=== PATIENT | female | born 1945 | race Caucasian/White ===

== ENCOUNTER 2017-10-24 13:18 | Inpatient (IN) | payer MEDICARE, OTHER ==
[2017-10-24] MEDS ORDERED: Acetaminophen 325 MG TAB PO PRN (14:07)
[2017-10-24] MEDS ORDERED: Sodium Chloride 0.9% 1,000 ML IV SCH (14:15)
[2017-10-24] MEDS ORDERED: Sodium Chloride 0.9% 500 ML IV SCH (14:15)
[2017-10-24] MEDS: Sodium Chloride 0.9% 1,000 ML IV SCH ×2 (15:00→18:07)
[2017-10-24 15:44] LABS: Band 13 % (5-11); Hematocrit 39.9 % (36.0-47.0); Mean Platelet Volume 7.7 fL (7.4-10.4); Neutrophil 69 % (42-75); White Blood Cell (WBC) Count 20.4 thou/uL (4.8-10.8)
[2017-10-24 15:46] LABS: ALT (SGPT) 18 U/L (8-55); AST (SGOT) 17 U/L (5-34); Alkaline Phosphatase 81 U/L (40-150); Anion Gap 11 mmol/L (10-20); BUN (Urea Nitrogen) 26 mg/dL (9.8-20.1); Bilirubin, Total 0.6 mg/dL (0.2-1.2); Calc. Creatinine Clearance 0 mL/min (70-130); Calcium 10.4 mg/dL (7.8-10.44); Carbon Dioxide 29 mmol/L (23-31); Chloride 102 mmol/L (98-107); Estimated GFR-MDRD 60; Globulin 3.1 g/dL (2.4-3.5); Protein, Total 6.9 g/dL (6.0-8.3)
[2017-10-24] MEDS: Dicyclomine 10 MG CAP PO PRN (17:28)
--- NOTE | 2017-10-24 17:39 | RAD ---
TWO VIEW ABDOMEN: 10/24/17 HISTORY: Gastroenteritis. Supine and upright views obtained. Bowel gas pattern is unremarkable. There is scattered stool and gas throughout the colon. Some scatte red small bowel gas appears unremarkable. No small bowel dilatation. No free air. Postcholecystectomy clips. IMPRESSION: Unremarkable bowel gas pattern. POS: [facility]
[2017-10-24] MEDS ORDERED: diphenhydrAMINE 25 MG CAP PO PRN (18:43)
[2017-10-24] MEDS: Ondansetron HCl/PF 4 MG/2 ML Vial IVP PRN (19:41)
[2017-10-24] MEDS: Carvedilol 6.25 MG TAB PO SCH (19:46)
[2017-10-24] MEDS: Famotidine 20 MG TAB PO SCH (19:47)
--- NOTE | 2017-10-24 23:12 | CT ---
NONCONTRAST ENHANCED CT IMAGES ABDOMEN AND PELVIS: 10/24/17 IV contrast is not given. Oral contrast was ingested. HISTORY: Abdominal pain and diarrhea. The lung bases are unremarkable. The liver has an area of hypodensity which is slightly larger than on the previous comparison CT in 2012, likely representing hepatic cyst. Splenic calcification compatible with granuloma seen. A hi atal hernia is seen. The adrenal glands are unremarkable. 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 No dilated loops of small bowel seen. There is marked abnormal thickening of the distal transverse colon, splenic flexure, descending colon compatible with colitis. Some moderate sigmoid colonic mucosal thickening also seen. Sigmoid colonic diverticulosis is also present. IMPRESSION: Abnormal thickening of portions of the distal colon including the distal transverse colon and splenic flexure and descending colon. This may represent changes of colitis. Correlate with direct visualiza tion. POS: [facility]
--- NOTE | 2017-10-25 00:24 | CON ---
DATE OF CONSULTATION: 10/24/2017 REASON FOR CONSULTATION: Hematochezia, diarrhea. CONSULTING PHYSICIAN: Juan Rod MD HISTORY OF PRESENT ILLNESS: Patient is a 72-year-old female with past medical history of gastroesophageal reflux disease, hypertension, hypothyroidism, diverticulosis, and ischemic colitis presenting with acute onset of nausea, vomiting, and bloody diarrhea. She states that she was in her usual state of health until approximately yesterday at noon when she began to experience left lower quadrant cramping abdominal pain and diaphoresis that was shortly followed by an episode of nonbloody emesis and bright red blood per rectum. Her abdominal pain was characterized as cramping abdominal pain, intermittent, and at the time of this examination was approximately 3-4/10 in severity. She states that over the last 24-48 hours, she has taken multiple medications for her diarrhea including azithromycin, Bentyl, and Zofran. Of note, she had an episode of ischemic colitis in 2014 after taking clonidine for antihypertensive purposes with the presenting symptoms very similar to that particular incident. She denies any recent change in her medications, travel outside [place], or consumption of water from an untreated water source. Last colonoscopy was performed in 08/2015, which showed changes consistent with sigmoid ischemic colitis. OUTPATIENT MEDICATIONS: Gaviscon Extra Relief Formula, Benefiber drink mix, lisinopril 40 mg daily, Synthroid 88 mcg daily, clonidine 0.1 mg as needed, carvedilol 25 mg twice daily, tramadol/acetaminophen as needed, montelukast sodium 10 mg as needed, hydrochlorothiazide 25 mg daily, Dexilant 60 mg daily. INPATIENT MEDICATIONS: Reviewed. MEDICAL HISTORY: As above per HPI. FAMILY HISTORY: Denies GI malignancies. SOCIAL HISTORY: Denies tobacco or illicit drug use. PHYSICAL EXAMINATION: VITAL SIGNS: Temperature 99.8, pulse 94, blood pressure 179/81, respiratory rate 16, satting 96% on room air. GENERAL: Patient is in no acute distress, alert and oriented x4. CARDIOVASCULAR: Regular rate and rhythm with no discernible murmurs, gallops, or rubs. RESPIRATORY: Clear to auscultation bilaterally with no wheezes or rales. ABDOMEN: Normoactive bowel sounds. [id number] tenderness to palpation in the left lower quadrant and left upper quadrant. No ecchymoses or overlying bruising noted. No abnormal pulsations or peristalsis. EXTREMITIES: No cyanosis, clubbing or edema noted in either upper or lower extremities. NEUROLOGIC: Normal attention span ability to concentrate. Appropriate fund of knowledge. MUSCULOSKELETAL: Normal gait and station. LABORATORY DATA: CBC with white blood cell count of 20.4, hemoglobin 13.1, hematocrit 39.9, platelet count 303, neutrophilic bands 13%. Chemistry with sodium of 138, potassium 4.4, chloride 102, carbon dioxide 29, BUN 26, creatinine 0.93, glucose 110, calcium 10.4. AST 17, ALT 18, alkaline phosphatase 81, total bilirubin 0.6, albumin 3.8. IMAGING: No current GI imaging available for review. ASSESSMENT AND PLAN: Patient is a 72-year-old female with past medical history of gastroesophageal reflux disease, hypertension, hypothyroidism, diverticulosis , and ischemic colitis presenting with left lower quadrant abdominal pain and hematochezia. Infectious colitis Patient is presenting with approximately 24-48 hours of left lower quadrant abdominal pain associated with increased diaphoresis, nausea, and vomiting, and bloody diarrhea characterized by moderate amounts of bright red blood per rectum. Rectal exam performed while in the clinic was positive for bright red blood on the glove. No stated history of sick contacts, changes in recent medications, or consumption of either foodstuffs or water from untreated or uncooked sources. Given the location of her pain and the appearance of bright red blood per rectum, differential could include diverticular bleeding (less likely), infectious etiology, ischemic colitis, diverticulitis, stercoral ulcerations (less likely), or malignancy (much less likely). PLAN: 1. We will obtain CT abdomen and pelvis with special attention to the left lower quadrant for evaluation of possible ischemic versus diverticulitis changes. 2. Continue IV fluid supplementation for dehydration. 3. We will obtain infectious stool studies for possible infectious etiology of hematochezia. 4. Continue to trend H&H and transfuse as necessary. 5. If the patient does not respond to the above conservative measures over the next 24-48 hours, would consider a colonoscopic evaluation. [facility]
[2017-10-25] MEDS: Sodium Chloride 0.9% 1,000 ML IV SCH ×2 (02:19→16:02)
[2017-10-25] MEDS: Levothyroxine Sodium 100 MCG TAB PO SCH (06:00)
[2017-10-25] MEDS: Ondansetron HCl/PF 4 MG/2 ML Vial IVP PRN (06:37)
[2017-10-25] MEDS: Dicyclomine 10 MG CAP PO PRN ×2 (06:40→14:31)
[2017-10-25] MEDS: Carvedilol 6.25 MG TAB PO SCH ×2 (08:54→20:43)
[2017-10-25] MEDS: Lisinopril 20 MG TAB PO SCH (08:54)
[2017-10-25 14:07] VITALS: BMI 28.1
--- NOTE | 2017-10-25 15:03 | CON ---
DATE OF CONSULTATION: 10/25/2017 REASON FOR CONSULTATION: Atrial fibrillation. PRIMARY PROVIDER: Dr. Dominick Hernandez. HISTORY OF PRESENT ILLNESS: Ms. Monroy is a very pleasant 72-year-old woman who has been seen by Dr. Kvng Hernandez in the past. She recently presented with hematochezia and persistent diarrhea over the last several days. She has been seen and evaluated by GI. She also recently developed atrial fibrillation. This is a new finding. She is mildly symptomatic. Heart rate in the 90s-100s. No chest pain or pressure noted. She underwent coronary angiography re cently by Dr. Dominick Hernandez. She did have mild to moderate coronary disease with most significant le dameon estimated at ostial 70% OM. PAST MEDICAL HISTORY: Hypertension. CURRENT MEDICATIONS: Coreg, lisinopril, amlodipine, hydrochlorothiazide. ALLERGIES: STATINS. SOCIAL HISTORY: No current tobacco or alcohol use. REVIEW OF SYSTEMS: Ten-point review of systems is reviewed and as above, otherwise negative. PHYSICAL EXAMINATION: GENERAL: Patient is a pleasant female who is in no acute distress. The patient appears her stated a ge. VITAL SIGNS: Blood pressure 178/83, pulse 79, temperature 99.4. NEUROLOGIC: The patient is alert and oriented times 3 with no focal neurologic deficits. HEENT: Sclerae without icterus. Mouth has moist mucous membranes with normal pallor. NECK: No JVD. Carotid upstroke brisk. No bruits bilaterally. LUNGS: Clear to auscultation with unlabored respirations. BACK: No scoliosis or kyphosis. CARDIAC: Irregular, irregular. ABDOMEN: Soft, nontender, nondistended. No peritoneal signs present. No hepatosplenomegaly. No ab normal striae. EXTREMITIES: 2+ femoral and 2+ dorsalis pedis pulses. No cyanosis, clubbing, or edema. SKIN: No gross abnormalities. PERTINENT LABORATORY DATA: White blood cell count 20,000, BUN 26, creatinine 0.93. IMPRESSION: New onset atrial fibrillation. RECOMMENDATIONS: At this point, I would continue rate control. She is on Coreg 12.5 mg 1 p.o. b.i.d . I discussed the case with Dr. Tavarez about anticoagulation therapy. At this point, given recent hematochezia, we will defer for now. Echo with Doppler has been ordered. Further recommendations halle Hernandez in a.m.
--- NOTE | 2017-10-25 17:31 | PRG ---
DATE OF SERVICE: 10/25/2017 REASON FOR INITIAL CONSULTATION: Hematochezia, diarrhea. SUBJECTIVE: The patient is feeling better this morning with lessened diarrhea overnight and with less hematochezia when compared to previous that ultimately stopped later this afternoon. However, she did have a larger bloody bowel movement this morning but has not since been repeated. She continues to have mild left-sided abdominal pain that is unchanged in location and/or frequency. Of note, she did have an episode of palpitations with prompted a 12-lead EKG, which showed atrial fibrillation with RVR. Cardiology service was consulted for evaluation and recommendations and the patient was transferred to telemetry as a result. Currently denies nausea, vomiting, fever, chills, dysphagia, hematemesis, or melena. INPATIENT MEDICATIONS: Reviewed. PHYSICAL EXAMINATION: VITAL SIGNS: Temperature 98.3, pulse 115, blood pressure 179/81, respiratory rate 20, satting 96% on 2 liters nasal cannula. GENERAL: No acute distress. Alert and oriented x4. NECK: Supple, no JVD noted. CARDIOVASCULAR: Irregularly irregular heart rhythm. No discernible murmurs, gallops or rubs. RESPIRATORY: Clear to auscultation bilaterally with no wheezes or rales. ABDOMEN: Normoactive bowel sounds, soft, nondistended. Tenderness to palpation in the left upper quadrant, left mid and left lower quadrant. EXTREMITIES: No cyanosis, clubbing or edema. LABORATORY DATA: No current studies available for review. IMAGING: CT abdomen and pelvis obtained on 10/24/2017 showing marked abnormal thickening of the distal transverse colon, splenic flexure, descending colon compatible with colitis. Some moderate sigmoid colonic mucosal thickening also seen, sigmoid colonic diverticulosis is also present. ASSESSMENT: The patient is a 72-year-old female with a past medical history of gastroesophageal reflux disease, hypertension, hypothyroidism, diverticulosis, and ischemic colitis presenting with left-sided abdominal pain, hematochezia, and imaging consistent with ischemic colitis. Ischemic colitis The patient presenting with acute onset of left lower quadrant abdominal pain associated with increased diaphoresis, nausea, and vomiting, and bloody diarrhea characterized by moderate amounts of bright red blood per rectum. With institution of IV fluid administration her diarrhea and bright red blood per rectum has become minimal, with improvement of her abdominal pain as well. Given the imaging and the location of her pain, the differential diagnosis could include ischemic colitis (most likely), infectious etiology (less likely given negative studies thus far), diverticulitis (less likely per imaging), diverticular disease, or malignancy (much less likely). PLAN: 1. Continue IV supplementation for dehydration at 100mL/hr. 2. Continue to trend H&H and transfuse as necessary. 3. Concur with Cardiology in evaluation and treatment of the new onset atrial fibrillation with the goal to maintain a roughly normotensive blood pressure to prevent any further ischemia to watershed area in the colon as seen on the imaging. 4. Colonoscopic evaluation is not indicated at this time given the high likelihood of ischemic colitis in the watershed area. 5. If patient continues to improve and if cleared by Cardiology, can be discharged from GI standpoint. ALAINA
[2017-10-25 17:34] LABS: #Eosinphils 0.1 thou/uL (0.0-0.7); #Lymphocytes 2.2 thou/uL (1.20-3.40); #Monocytes 1.4 thou/uL (0.11-0.59); #Neutrophils 11.3 thou/uL (1.40-6.50); %Basophils 0.1 % (0.0-1.0); %Eosinophils 0.4 % (0.0-10.0); %Lymphocytes 14.5 % (21.0-51.0); %Monocytes 9.2 % (0.0-10.0); Hematocrit 37.3 % (36.0-47.0); Mean Platelet Volume 7.7 fL (7.4-10.4); Red Blood Cell (RBC) Count 4.13 mill/uL (4.20-5.40); White Blood Cell (WBC) Count 14.9 thou/uL (4.8-10.8)
[2017-10-25 17:56] LABS: ALT (SGPT) 15 U/L (8-55); AST (SGOT) 20 U/L (5-34); Alkaline Phosphatase 90 U/L (40-150); Anion Gap 11 mmol/L (10-20); BUN (Urea Nitrogen) 15 mg/dL (9.8-20.1); Bilirubin, Total 0.5 mg/dL (0.2-1.2); Calc. Creatinine Clearance 73 mL/min (70-130); Calcium 9.7 mg/dL (7.8-10.44); Carbon Dioxide 26 mmol/L (23-31); Chloride 107 mmol/L (98-107); Estimated GFR-MDRD 72; Globulin 3.1 g/dL (2.4-3.5); Protein, Total 6.7 g/dL (6.0-8.3)
[2017-10-25] MEDS: Famotidine 20 MG TAB PO SCH (20:43)
[2017-10-26] MEDS: Sodium Chloride 0.9% 1,000 ML IV SCH (02:22)
[2017-10-26 05:30] LABS: ALT (SGPT) 14 U/L (8-55); AST (SGOT) 16 U/L (5-34); Alkaline Phosphatase 63 U/L (40-150); Anion Gap 9 mmol/L (10-20); BUN (Urea Nitrogen) 13 mg/dL (9.8-20.1); Bilirubin, Total 0.4 mg/dL (0.2-1.2); Calc. Creatinine Clearance 0 mL/min (70-130); Calcium 8.7 mg/dL (7.8-10.44); Carbon Dioxide 24 mmol/L (23-31); Chloride 111 mmol/L (98-107); Estimated GFR-MDRD 79; Globulin 2.4 g/dL (2.4-3.5); Protein, Total 5.5 g/dL (6.0-8.3)
[2017-10-26 05:31] LABS: #Basophils 0.1 thou/uL (0.0-0.2); #Eosinphils 0.2 thou/uL (0.0-0.7); #Lymphocytes 2.4 thou/uL (1.20-3.40); #Monocytes 1.1 thou/uL (0.11-0.59); #Neutrophils 7.7 thou/uL (1.40-6.50); %Basophils 0.4 % (0.0-1.0); %Eosinophils 1.4 % (0.0-10.0); %Lymphocytes 21.2 % (21.0-51.0); %Monocytes 9.3 % (0.0-10.0); Hematocrit 32.7 % (36.0-47.0); Mean Platelet Volume 7.8 fL (7.4-10.4); White Blood Cell (WBC) Count 11.4 thou/uL (4.8-10.8)
[2017-10-26] MEDS: Levothyroxine Sodium 100 MCG TAB PO SCH (06:00)
[2017-10-26] MEDS: Carvedilol 6.25 MG TAB PO SCH ×2 (09:49→16:52)
[2017-10-26] MEDS: Lisinopril 20 MG TAB PO SCH (09:50)
--- NOTE | 2017-10-26 10:29 | PRG ---
DATE OF SERVICE: 10/26/2017. REASON FOR INITIAL CONSULTATION: Hematochezia, diarrhea. SUBJECTIVE: The patient is feeling much better this morning with no diarrhea or hematochezia overnight. She does continue to have some mild tenderness in the left upper quadrant, but it is also improved from previous. Yesterday, she did have an episode of atrial fibrillation with RVR with Cardiology consultation obtained at that time. Per recommendations, they have recommended rate control for this atrial fibrillation, but no anticoagulation at this time given her recent gastrointestinal bleed. Currently, denies nausea, vomiting, fevers, chills, dysphagia, hematemesis, hematochezia, or melena. INPATIENT MEDICATIONS: Reviewed. LABORATORY DATA: CBC with white blood cell count 11.4, hemoglobin 10.9, hematocrit 32.7, platelets 249. Chemistry with sodium of 141, potassium 3.3, chloride 111, carbon dioxide 24, BUN 13, creatinine 0.73, glucose 91. IMAGING: CT abdomen and pelvis obtained on 10/24/2017 showing marked abnormal thickening of the distal transverse colon, splenic flexure, and descending colon compatible with colitis. Some moderate sigmoid colonic mucosal thickening also seen. Sigmoid colonic diverticulosis also present. ASSESSMENT AND PLAN: The patient is a 72-year-old female with past medical history of GERD, hypertension, hypothyroidism, diverticulosis, and ischemic colitis presenting with left-sided abdominal pain, hematochezia, and imaging consistent with an ischemic colitis. Ischemic colitis The patient presenting with acute onset of left lower quadrant abdominal pain associated with increased diaphoresis, nausea, vomiting, and hematochezia characterized as moderate amounts of bright red blood per rectum. She has responded well to IV fluid administration and more conservative measures with complete resolution of her diarrhea and hematochezia over the last 12-24 hours. Given the imaging and location of her pain, ischemic colitis is the most likely etiology. PLAN: 1. Discontinue IV fluid with patient to maintain hydration via oral route. 2. Colonic evaluation is not indicated at this time given the high likelihood of ischemic colitis. 3. Defer to Cardiology for management of new onset atrial fibrillation with RVR. We would continue to limit anticoagulation for now, but will most likely need chronic anticoagulation in the future given the new onset of this cardiac arrhythmia. We will defer to Cardiology when that is deemed appropriate. 4. From a GI standpoint, the patient could be discharged to home with follow up in the GI clinic within 3-4 weeks if she is cleared by Cardiology for discharge. [facility]INA
[2017-10-26 16:10] VITALS: TEMP 99.1
[2017-10-26] MEDS ORDERED: Dronedarone HCl 400 MG TAB PO SCH (17:00)
--- NOTE | 2017-10-26 19:10 | PRG ---
DATE OF SERVICE: 10/26/2017 SUBJECTIVE: Ms. Monroy is doing well today. She converted to sinus rhythm yesterday. She is feeling well. PHYSICAL EXAMINATION: VITAL SIGNS: Her blood pressure is 157/76, pulse 64 and regular. LUNGS: Clear. CARDIAC: Normal S1 and S2. ASSESSMENT: 1. Episodes of hematochezia which was thought to be due to ischemic colitis. 2. Paroxysmal atrial fibrillation. This is the first time she has had these symptoms. 3. Coronary artery disease. PLAN: 1. We will put her on Multaq 200 mg twice a day, start tomorrow. Heart rate was 120-110 yesterday i n atrial fibrillation. We will try to get by with low dose Multaq. 2. Need to wait for anticoagulation for about 3 weeks. 3. She will see us in the office in 3 weeks. 4. Cannot be anticoagulated at this time. We will try to do that in 3 weeks.
[2017-10-26 19:42] VITALS: BP 152/68
[2017-10-27] MEDS ORDERED: Dronedarone HCl 400 MG TAB PO SCH ×2 (09:00→17:00)
--- NOTE | 2017-11-11 13:24 | EKG ---
Test Reason : Blood Pressure : / mmHG Vent. Rate : 114 BPM Atrial Rate : 096 BPM P-R Int : 000 ms QRS Dur : 084 ms QT Int : 336 ms P-R-T Axes : 000 019 028 degrees QTc Int : 463 ms Atrial fibrillation with rapid ventricular response RSR' or QR pattern in V1 suggests right ventricular conduction delay Nonspecific ST abnormality , probably digitalis effect Abnormal ECG Confirmed by ROBERTO MORRELL, AUDI ([id number]) on 11/11/2017 1:24:12 PM Referred By: RUBIO Confirmed By:AUDI MEJIA MD
== END 2017-10-26 19:43 | disposition home or self-care (01) | DRG 395 ==
LOC: ONC 13:18 → 2NO 10-25 14:56
PROVIDERS: ADMIT Internal Medicine; ATTEND Internal Medicine
DX: K55.9 Vascular disorder of intestine, unspecified (principal); I48.91 Unspecified atrial fibrillation; E86.0 Dehydration; I10 Essential (primary) hypertension; E03.9 Hypothyroidism, unspecified; I25.10 Atherosclerotic heart disease of native coronary artery without angina pectoris; K21.9 Gastro-esophageal reflux disease without esophagitis
CPT/HCPCS: 36415; 74020; 74176; 80053; 85025; 87045; 87046; 87324; 87449; 87899; 93005; 93010; J2405

== ENCOUNTER 2017-12-20 08:22 | Outpatient (CLI) | payer MEDICARE, OTHER ==
--- NOTE | 2017-12-20 11:25 | CT ---
CT ANGIOGRAM ABDOMEN AND PELVIS WITH IV CONTRAST AND 3D RECONSTRUCTIONS: Date: 12-20-17 History: Bloody diarrhea. Abdominal pain with nausea and vomiting. Patient states left lower quadrant pain for 2-3 months. History of cholecystectomy. Technique: Contiguous axial CT images are obtained through the abdomen and pelvis after the administr ation of intravenous contrast. 3D reconstruction images are provided. Delayed portal venous phase of imaging was also obtained through the abdomen and pelvis. Comparison: 03-22-13 FINDINGS: Again noted are partially imaged bilateral breast prostheses. There is atelectasis present in each lung base. Small hiatal hernia is again present. Post cholecystectomy changes are noted. Delayed portal venous phase of imaging demonstrates patency o f the portal and splenic veins as well as the superior mesenteric vein. There does appear to be atrop hy of the lateral segment of the left hepatic lobe when compared to the prior study of 2012 of uncert ain etiology. As a result, the left portal vein is not well visualized. Kidneys demonstrate a lobulated appearance bilaterally, and a few subcentimeter too small to characte rize hypodense lesions are seen in the left kidney. No enhancing renal lesion is appreciated. There i s a lobulated low density structure seen within the right hepatic lobe, also seen on prior exam, prev iously measuring 10 mm and now measures 14 mm. This does demonstrate fluid attenuation. This may repr esent a small cyst with internal septation to the closely adjacent cyst. Calcified granuloma is also seen within the right hepatic lobe with calcified granuloma again scattered in the spleen. The pancreas, bilateral adrenal glands, and partially distended urinary bladder as well as uterus and adnexal structures demonstrate a normal CT appearance. There is colonic diverticulosis. There is mild atherosclerotic irregularity and narrowing involving the proximal single left renal art renetta. There is a single patent right renal artery. The celiac and superior mesenteric and inferior mes enteric arteries are patent. There is mild atherosclerotic plaque in the abdominal aorta, but the abdominal aorta is normal in mal[place] iber with evidence of an aortic dissection. The bilateral iliac and common femoral arteries are paten t. Degenerative changes are seen in the spine. There is a grade I anterolisthesis of L4 on L5 likely con tributable to facet degenerative changes at this level. IMPRESSION: 1. The celiac, superior mesenteric, and inferior mesenteric arteries are patent. 2. Single left renal artery demonstrating atherosclerotic plaque proximally resulting in mild to mode rate focal area of narrowing. Single patent right renal artery is present. 3. The main portal vein as well as right portal vein are patent. However, the left portal vein is kelly y small in size, and there has been interval atrophy of the lateral segment of the left hepatic lobe when compared to study on 03-22-13 of uncertain etiology. This may be post-surgical in origin. There i s evidence of cholecystectomy changes. 4. Small hiatal hernia. 5. Colonic diverticulosis. 6. Small lobulated complex cyst versus closes adjacent cyst in the right hepatic lobe. 7. Degenerative changes in the spine with grade I anterolisthesis of L4 on L5. POS: [facility]
[2017-12-20] MEDS ORDERED: Iopamidol 370 76% 100 ML VIAL ONE (13:09)
== END 2017-12-20 08:23 | disposition home or self-care (01) ==
LOC: CT 08:22
PROVIDERS: ATTEND Internal Medicine Gastroenterology
DX: R19.7 Diarrhea, unspecified (principal); R10.32 Left lower quadrant pain; I70.1 Atherosclerosis of renal artery; K44.9 Diaphragmatic hernia without obstruction or gangrene; K57.30 Diverticulosis of large intestine without perforation or abscess without bleeding; M47.816 Spondylosis without myelopathy or radiculopathy, lumbar region; M43.16 Spondylolisthesis, lumbar region
CPT/HCPCS: 74174

== ENCOUNTER 2019-03-06 10:53 | Outpatient (CLI) | payer MEDICARE, OTHER ==
--- NOTE | 2019-03-06 11:51 | RAD ---
RIGHT HIP TWO VIEWS: History: Osteoarthritis with pain. FINDINGS: There are mild degenerative changes. Femoral head contour is normal. Minimal spurring is seen from th e femoral head and acetabulum. No fracture or acute abnormality. IMPRESSION: Mild degenerative change. POS: [facility]
== END 2019-03-06 10:54 | disposition home or self-care (01) ==
LOC: RAD 10:53
PROVIDERS: ATTEND Anesthesiology Pain Medicine
DX: M16.11 Unilateral primary osteoarthritis, right hip (principal)

== ENCOUNTER 2019-03-20 09:02 | Outpatient (CLI) | payer MEDICARE, OTHER ==
--- NOTE | 2019-03-20 09:44 | RAD ---
THREE VIEWS LUMBAR SPINE: Date: 03-20-19 History: Back pain, right lower extremity radiculopathy. FINDINGS: Lateral neutral, flexion and extension imaging is provided. There is multilevel lower lumbar spine facet hypertrophic change, most prominent at L4-5 and L5-S1. There is disc space narrowing and degenerative endplate change throughout the lumbar spine, most prom inent at L1-2, L2-3, and L3-4. Anterior osteophyte formation noted at L1-2 and L3-4. Anterolisthesis at L4-5 noted, measuring 7-8 mm on neutral imaging, 9 mm on extension imaging, and 1. 2 cm on flexion imaging. There is minimal retrolisthesis at L1-2 and L2-3 measuring in the 3 mm range , stable on neutral, flexion, and extension views. Clips in the upper abdomen suggest prior cholecyst ectomy. IMPRESSION: Multilevel degenerative change within the lumbar spine. Significant anterolisthesis at L4-5, measurin g up to 1.2 cm upon flexion. POS: [facility]
--- NOTE | 2019-03-20 10:16 | MRI ---
MRI lumbar spine noncontrast: HISTORY: Lumbar radiculopathy, acute. Low back pain radiating down the right leg, x3 weeks. L2 steroid injecti on 2 weeks ago. COMPARISON: None FINDINGS: Appropriate T1 marrow signal intensity of the lumbar vertebra. Lumbar spine vertebral body height is maintained. No fracture. No significant STIR hyperintensity to suggest vertebral body edema or ligamentous injury. 3. 0.1 mm of retrolisthesis of L1 upon L2, 2.3 mm of retrolisthesis of L2 upon L3, 3.1 mm retrolisthe sis of L3 upon L4, 6.3 mm of anterolisthesis of L4 upon L5. Appropriate signal intensity in the visualized solid organs. 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 Generalized disc bulge, ligament flavum thic kening result in mild central canal stenosis. Moderate bilateral neural foraminal narrowing. L2-L3:Desiccation with severe loss of disc space height. Broad-based disc bulge with a left subarticu lar disc protrusion with associated inferior disc extrusion. Disc material abuts and obscures the traversing left L3 root. Overall mild central canal stenosis. Moderate right and moderate left forami nal narrowing. L3-L4:Desiccation with severe loss of disc space height. Generalized disc bulge, ligament flavum thic kening and facet hypertrophy result in mild central canal stenosis. There is narrowing of the left subarticular zone with obscuration the traversing left L4 nerve root. Moderate right and moderate to severe left foraminal narrowing. L4-L5:Desiccation with severe loss of disc space height. Broad-based disc bulge, ligament flavum thic kening and facet hypertrophy result in moderate to severe central canal stenosis. Moderate bilateral neural foraminal narrowing. L5-S1:Mild loss of disc space height. Generalized disc bulge with a small left subarticular disc prot rusion. No significant central canal stenosis. Disc material encroaches upon but does not obscure the traversing left S1 nerve root. Bilateral facet hypertrophy. Bilaterally, neural foramina are iraheta nt. IMPRESSION: 1. Spondylolisthesis as above. 2. Narrowing of the left subarticular zone at L2-L3 with obscuration the traversing left L3 nerve ro ot 3. Narrowing of the left subareolar zone at L3-L4 with obscuration the traversing left L4 nerve root 4. Moderate to severe central canal stenosis at L4-L5.
== END 2019-03-20 09:03 | disposition home or self-care (01) ==
LOC: SCSMRI 09:02
PROVIDERS: ATTEND Anesthesiology Pain Medicine
DX: M47.26 Other spondylosis with radiculopathy, lumbar region (principal); M43.16 Spondylolisthesis, lumbar region; M48.061 Spinal stenosis, lumbar region without neurogenic claudication
CPT/HCPCS: 72100; 72148

== ENCOUNTER 2019-07-29 14:35 | Outpatient (CLI) | payer MEDICARE, OTHER ==
--- NOTE | 2019-07-29 18:11 | MRI ---
EXAM: MRI lumbar spine without contrast HISTORY: Severe back pain since recent fall on July 01 COMPARISON: 03/20/2019 TECHNIQUE: Multiple planar multisequence MR images were obtained of the lumbar spine without contrast . FINDINGS: Generalized disc desiccation is seen. There is loss of intervertebral disc space height throughout th e lumbar spine. There is stable grade 1 anterolisthesis of L4 on L5. There is new abnormal low T1 and high T2 signal involving the inferior endplate of L5 consistent with a compression fracture. Ther e is approximately 10% height loss. 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 The prevertebral and paraspinal soft tissues ar e otherwise unremarkable. The conus medullaris terminates normally at L1. T12/L1: No significant posterior bulge or protrusion. No posterior facet arthrosis. No central kaylyn l stenosis. No neural foraminal stenosis L1/2: Small disc osteophyte complex. No posterior facet arthrosis. Mild central canal stenosis. Mi ld to moderate bilateral neural foraminal stenosis L2/3: Moderate disc osteophyte complex. No posterior facet arthrosis. Moderate central canal stenos is. Moderate bilateral neural foraminal stenosis L3/4: Moderate disc osteophyte complex. No posterior facet arthrosis. Moderate central canal stenos is. Moderate bilateral neural foraminal stenosis L4/5: Moderate disc osteophyte complex. Severe bilateral posterior facet arthrosis. Severe central canal stenosis. Moderate to severe bilateral neural foraminal stenosis L5/S1: Small disc osteophyte complex. Moderate bilateral posterior facet arthrosis. Mild central ca nal stenosis. Moderate right and mild left neural foraminal stenosis IMPRESSION: 1. Compression deformity of L5 as above 2. Degenerative changes of the lumbar spine as above
== END 2019-07-29 14:36 | disposition home or self-care (01) ==
LOC: SCSMRI 14:35
PROVIDERS: ATTEND Anesthesiology Pain Medicine
DX: M48.062 Spinal stenosis, lumbar region with neurogenic claudication (principal); M47.816 Spondylosis without myelopathy or radiculopathy, lumbar region; M43.8X6 Other specified deforming dorsopathies, lumbar region
CPT/HCPCS: 72148